=== PATIENT | male | born 1990 | race Caucasian/White ===

== ENCOUNTER 2018-01-01 10:56 | Outpatient (CLI) | payer OTHER ==
[2018-01-03 06:18] LABS: CHLAMYDIA TRACHOMATIS AMP DNA Negative (Negative)
== END 2018-01-01 17:59 | disposition home or self-care (01) ==
LOC: MLB 10:56
PROVIDERS: ATTEND Student in an Organized Health Care Education/Training Program
DX: N34.2 Other urethritis (principal)
CPT/HCPCS: 36415; 86694; 86702; 87491